=== PATIENT | male | born 1935 | race Caucasian/White ===

== ENCOUNTER 2018-10-29 05:48 | Inpatient (IN) | payer MEDICARE, OTHER ==
[~2018-10-29] VITALS: Ht 180.3 cm; Wt 80.5 kg
[2018-10-29] MEDS ORDERED: ATOR20TA PO (05:59)
[2018-10-29] MEDS ORDERED: ASPI-515 PO (05:59)
[2018-10-29] MEDS ORDERED: SINEX (06:00)
[2018-10-29] MEDS ORDERED: PROAIR (06:00)
[2018-10-29 06:50] LABS: BASOPHILS # (AUTO) 0.09 x10^3/uL (0-0.1); BASOPHILS % (AUTO) 1 % (0-1); EOSINOPHILS # (AUTO) 0.11 x10^3/uL (0-0.4); EOSINOPHILS % (AUTO) 1 % (1-7); LYMPHOCYTES # (AUTO) 1.15 x10^3/uL (1-3.4); LYMPHOCYTES % (AUTO) 15 % (22-44); MD NO; MEAN CORPUSCULAR HEMOGLOBIN 30.4 pg (27.5-34.5); MEAN CORPUSCULAR HGB CONC 33.5 g/dL (33.2-36.2); MEAN CORPUSCULAR VOLUME 90.7 fL (81-97); MEAN PLATELET VOLUME 9.7 fL (7.4-10.4); MONOCYTES # (AUTO) 0.56 x10^3/uL (0.2-0.8); MONOCYTES % (AUTO) 7 % (2-9); NEUTROPHILS # (AUTO) 5.95 x10^3/uL (1.8-6.8); NEUTROPHILS % (AUTO) 76 % (42-75); PLATELET COUNT 189 x10^3/uL (130-400); RED BLOOD COUNT 4.48 x10^6/uL (4.38-5.82); RED CELL DISTRIBUTION WIDTH 13.7 % (9.4-14.8)
[2018-10-29 07:04] LABS: ALANINE AMINOTRANSFERASE 20 U/L (12-78); ALBUMIN 3.8 g/dL (3.4-5.0); ANION GAP 9 mmol/L (5-15); CALCIUM 8.6 mg/dL (8.5-10.1); CHLORIDE 111 mmol/L (98-107); CREATININE 1.25 mg/dL (0.7-1.3)
[2018-10-29 07:08] LABS: ALKALINE PHOSPHATASE 55 U/L (45-117); BILIRUBIN,TOTAL 0.7 mg/dL (0.2-1.0)
[2018-10-29] MEDS ORDERED: OMNIPAQUE 350 MG/ML, 100ML BOTTLE ONE (08:40)
[2018-10-29] MEDS ORDERED: HEPARIN 5,000 UNITS/ML, 1ML IV ONE (09:30)
[2018-10-29] MEDS ORDERED: HEPARIN 25,000 UNITS/500ML PMX 500 ML ONE (09:40)
[2018-10-29] MEDS ORDERED: HEPARIN 5,000 UNITS/ML, 1ML ONE (09:40)
[2018-10-29] MEDS: HEPARIN 25,000 UNITS/500ML PMX 500 ML IV PRN ×3 (09:52→20:37)
[2018-10-29] MEDS: FUROSEMIDE 20 MG/2 ML IV SCH ×2 (10:30→16:42)
[2018-10-29] MEDS ORDERED: TEMAZEPAM 15 MG CAPSULE PO PRN (10:30)
[2018-10-29] MEDS ORDERED: NITROGLYCERIN 0.4 MG BOTTLE (25 TABS) SL PRN (10:30)
[2018-10-29] MEDS ORDERED: hydrALAzine 20 MG/ML, 1ML IVPush PRN (10:30)
[2018-10-29] MEDS ORDERED: ONDANSETRON 2MG/ML, 2ML IVPush PRN (10:30)
[2018-10-29] MEDS ORDERED: morphine SULFATE 10 MG/ML, 1ML IVPush PRN (10:30)
[2018-10-29] MEDS ORDERED: HYDROcodone/APAP 5/325 TABLET PO PRN (10:30)
[2018-10-29 10:47] VITALS: BP 189/94
[2018-10-29] MEDS ORDERED: SODIUM CHLORIDE 0.9% 1,000 ML IV ONE (10:53)
[2018-10-29 14:08] VITALS: BP 125/69
[2018-10-29] MEDS: POTASSIUM CHLORIDE 20 MEQ TAB.ER.PRT PO SCH (14:14)
[2018-10-29] MEDS: METOPROLOL TARTRATE 50 MG TABLET PO SCH ×2 (14:15→19:52)
[2018-10-29] MEDS: LISINOPRIL 10 MG TABLET PO SCH ×2 (14:15→19:52)
[2018-10-29] MEDS: HEPARIN 5,000 UNITS/ML, 1ML IV PRN (16:42)
[2018-10-29] MEDS: ACETAMINOPHEN 325 MG TABLET PO PRN (17:48)
[2018-10-29 19:43] VITALS: BP 123/71
[2018-10-29] MEDS: ATORVASTATIN 80 MG TABLET PO SCH (19:51)
[2018-10-29] MEDS ORDERED: ATORVASTATIN 40 MG TABLET PO SCH (21:00)
[2018-10-30 00:15] VITALS: BP 135/85
[2018-10-30] MEDS ORDERED: FUROSEMIDE 40 MG/4 ML IV ONE (04:00)
[2018-10-30] MEDS ORDERED: FUROSEMIDE 40 MG/4 ML ONE (04:10)
[2018-10-30 05:45] LABS: BASOPHILS # (AUTO) 0.04 x10^3/uL (0-0.1); BASOPHILS % (AUTO) 1 % (0-1); EOSINOPHILS # (AUTO) 0.01 x10^3/uL (0-0.4); EOSINOPHILS % (AUTO) 0 % (1-7); LYMPHOCYTES # (AUTO) 0.71 x10^3/uL (1-3.4); LYMPHOCYTES % (AUTO) 10 % (22-44); MD NO; MEAN CORPUSCULAR HGB CONC 32.6 g/dL (33.2-36.2); MEAN PLATELET VOLUME 10.3 fL (7.4-10.4); MONOCYTES # (AUTO) 0.61 x10^3/uL (0.2-0.8); MONOCYTES % (AUTO) 8 % (2-9); NEUTROPHILS # (AUTO) 6.11 x10^3/uL (1.8-6.8); NEUTROPHILS % (AUTO) 82 % (42-75); PLATELET COUNT 178 x10^3/uL (130-400); RED BLOOD COUNT 4.35 x10^6/uL (4.38-5.82); RED CELL DISTRIBUTION WIDTH 13.9 % (9.4-14.8)
[2018-10-30 05:56] LABS: ALBUMIN 3.6 g/dL (3.4-5.0); ANION GAP 9 mmol/L (5-15); CALCIUM 8.7 mg/dL (8.5-10.1); CHLORIDE 107 mmol/L (98-107)
[2018-10-30 06:03] LABS: ALANINE AMINOTRANSFERASE 28 U/L (12-78); ALKALINE PHOSPHATASE 56 U/L (45-117); BILIRUBIN,TOTAL 0.6 mg/dL (0.2-1.0); CHOL/HDL RATIO 3.5; CHOLESTEROL, TOTAL 208 mg/dL (140-239); CREATININE 1.39 mg/dL (0.7-1.3); HDL CHOL % 29 % (26-37); HDL CHOLESTEROL (DIRECT) 60 mg/dL (40-60); LDL CHOLESTEROL,CALCULATED 136 mg/dL (54-169); LDL/HDL RATIO 2.3 (0.5-3.0); TOTAL PROTEIN 6.8 g/dL (6.4-8.2); TRIGLYCERIDES 59 mg/dL (50-200); VLDL CHOLESTEROL 12 mg/dL (0-25)
[2018-10-30] MEDS: ASPIRIN 81 MG TABLET EC PO SCH (06:13)
[2018-10-30] MEDS: HEPARIN 5,000 UNITS/ML, 1ML IV PRN (06:13)
[2018-10-30 06:56] VITALS: BP 126/73
[2018-10-30] MEDS: FUROSEMIDE 20 MG/2 ML IV SCH ×2 (07:27→17:18)
[2018-10-30] MEDS: METOPROLOL TARTRATE 50 MG TABLET PO SCH ×2 (08:55→20:40)
[2018-10-30] MEDS: LISINOPRIL 10 MG TABLET PO SCH ×2 (08:56→20:40)
[2018-10-30] MEDS: POTASSIUM CHLORIDE 20 MEQ TAB.ER.PRT PO SCH (09:00)
[2018-10-30] MEDS ORDERED: MIDAZOLAM 1 MG/ML, 2ML ONE (13:15)
[2018-10-30] MEDS ORDERED: FENTANYL PF 100 MCG/2ML ONE (13:15)
[2018-10-30] MEDS ORDERED: HEPARIN 1,000 UNITS/ML, 10ML ONE (13:16)
[2018-10-30] MEDS ORDERED: VERAPAMIL 2.5 MG/ML, 2ML ONE (13:16)
[2018-10-30] MEDS ORDERED: BIVALIRUDIN 250 MG ONE (13:17)
[2018-10-30] MEDS ORDERED: TICAGRELOR 90 MG TABLET ONE (13:17)
[2018-10-30 13:22] VITALS: BP 128/73
[2018-10-30] MEDS ORDERED: ONDANSETRON 2MG/ML, 2ML ONE (13:39)
[2018-10-30] MEDS ORDERED: SODIUM CHLORIDE 0.9% 1,000 ML IV SCH (14:18)
[2018-10-30 19:45] VITALS: BP 125/68
[2018-10-30] MEDS: ATORVASTATIN 80 MG TABLET PO SCH (20:40)
[2018-10-31 01:50] VITALS: BP 120/64
[2018-10-31 04:45] LABS: ANION GAP 12 mmol/L (5-15); CALCIUM 8.3 mg/dL (8.5-10.1); CHLORIDE 104 mmol/L (98-107)
[2018-10-31 04:46] LABS: CREATININE 2.29 mg/dL (0.7-1.3)
[2018-10-31] MEDS: ASPIRIN 81 MG TABLET EC PO SCH (06:25)
[2018-10-31 06:45] VITALS: BP 113/65
[2018-10-31] MEDS: FUROSEMIDE 20 MG/2 ML IV SCH (08:09)
[2018-10-31] MEDS: LISINOPRIL 10 MG TABLET PO SCH (08:42)
[2018-10-31] MEDS: METOPROLOL TARTRATE 50 MG TABLET PO SCH (08:42)
[2018-10-31] MEDS: POTASSIUM CHLORIDE 20 MEQ TAB.ER.PRT PO SCH (08:42)
[2018-10-31] MEDS ORDERED: LISINOPRIL 10 MG TABLET PO SCH (11:00)
[2018-10-31] MEDS: CLOPIDOGREL 75 MG TABLET PO SCH (12:02)
[2018-10-31] MEDS: HEPARIN 5,000 UNITS/ML, 1ML SQ SCH ×2 (12:02→20:20)
[2018-10-31 12:36] VITALS: BP 109/63
[2018-10-31] MEDS: ACETAMINOPHEN 325 MG TABLET PO PRN (13:26)
[2018-10-31 16:19] LABS: MICROSCOPIC NOT IND
[2018-10-31] MEDS ORDERED: SODIUM CHLORIDE 0.9%, 500ML IVBOLUS ONE (17:00)
[2018-10-31 19:22] VITALS: BP 132/70
[2018-10-31] MEDS: ATORVASTATIN 80 MG TABLET PO SCH (22:46)
[2018-11-01 00:23] VITALS: BP 119/67
[2018-11-01] MEDS: HEPARIN 5,000 UNITS/ML, 1ML SQ SCH ×3 (04:24→20:12)
[2018-11-01 05:34] LABS: CHLORIDE 101 mmol/L (98-107)
[2018-11-01 05:39] LABS: ANION GAP 12 mmol/L (5-15); CALCIUM 8.2 mg/dL (8.5-10.1); CREATININE 2.68 mg/dL (0.7-1.3)
[2018-11-01] MEDS ORDERED: METOPROLOL SUCCINATE 50 MG TAB.ER.24H PO SCH (06:00)
[2018-11-01] MEDS: ASPIRIN 81 MG TABLET EC PO SCH (06:37)
[2018-11-01 09:10] VITALS: BP 145/77
[2018-11-01] MEDS: CLOPIDOGREL 75 MG TABLET PO SCH (09:13)
[2018-11-01] MEDS: SODIUM CHLORIDE 0.9% 1,000 ML IV SCH ×2 (09:17→23:30)
[2018-11-01] MEDS: ACETAMINOPHEN 325 MG TABLET PO PRN ×2 (11:09→18:31)
[2018-11-01 14:33] VITALS: BP 136/76
[2018-11-01 19:30] VITALS: BP 148/86
[2018-11-01] MEDS: ATORVASTATIN 80 MG TABLET PO SCH (20:11)
[2018-11-01 23:30] VITALS: BP 147/72
[2018-11-02] MEDS: METOPROLOL SUCCINATE 25 MG TAB.ER.24H PO SCH (05:15)
[2018-11-02] MEDS: ASPIRIN 81 MG TABLET EC PO SCH (05:15)
[2018-11-02] MEDS: HEPARIN 5,000 UNITS/ML, 1ML SQ SCH ×3 (05:16→21:41)
[2018-11-02 05:30] LABS: ANION GAP 9 mmol/L (5-15); CALCIUM 7.9 mg/dL (8.5-10.1); CHLORIDE 104 mmol/L (98-107)
[2018-11-02 05:50] LABS: CREATININE 1.99 mg/dL (0.7-1.3)
[2018-11-02 07:09] VITALS: BP 146/71
[2018-11-02] MEDS: CLOPIDOGREL 75 MG TABLET PO SCH (08:32)
[2018-11-02] MEDS: ACETAMINOPHEN 325 MG TABLET PO PRN (08:36)
[2018-11-02] MEDS: SODIUM CHLORIDE 0.9% 1,000 ML IV SCH (12:30)
[2018-11-02 12:53] VITALS: BP 134/82
[2018-11-02 18:56] VITALS: BP 142/68
[2018-11-02] MEDS: ATORVASTATIN 80 MG TABLET PO SCH (21:41)
[2018-11-03 00:58] VITALS: BP 156/85
[2018-11-03] MEDS: ASPIRIN 81 MG TABLET EC PO SCH (05:23)
[2018-11-03] MEDS: METOPROLOL SUCCINATE 25 MG TAB.ER.24H PO SCH (05:23)
[2018-11-03] MEDS: HEPARIN 5,000 UNITS/ML, 1ML SQ SCH (05:23)
[2018-11-03] MEDS: ACETAMINOPHEN 325 MG TABLET PO PRN (05:25)
[2018-11-03 05:48] LABS: CHLORIDE 103 mmol/L (98-107)
[2018-11-03 05:54] LABS: ALBUMIN 3.8 g/dL (3.4-5.0); ANION GAP 11 mmol/L (5-15); CALCIUM 8.5 mg/dL (8.5-10.1); CREATININE 1.79 mg/dL (0.7-1.3)
[2018-11-03 08:00] VITALS: BP 158/83
[2018-11-03] MEDS ORDERED: LISINOPRIL 5 MG TABLET ONE (08:44)
[2018-11-03] MEDS: CLOPIDOGREL 75 MG TABLET PO SCH (08:47)
[2018-11-03] MEDS ORDERED: LISINOPRIL 5 MG TABLET PO SCH (09:00)
[2018-11-03] MEDS ORDERED: ATOR-2 PO (09:23)
[2018-11-03] MEDS ORDERED: METO25TA91 PO (09:23)
[2018-11-03] MEDS ORDERED: CLOP75TA PO (09:23)
[2018-11-03] MEDS ORDERED: ASPI81TA45 PO (09:23)
[2018-11-03] MEDS ORDERED: LISI5TAB7 PO (09:23)
== END 2018-11-03 10:51 | disposition home or self-care (01) | DRG 280 ==
LOC: ED 07:12 → SUATTDRO 09:52 → EDIP 10:29 → 5SO 10:40 → DCLOUNGE 11-03 10:28
PROVIDERS: ADMIT Hospitalist; ATTEND Hospitalist
PROC: 4A023N7 Measurement of Cardiac Sampling and Pressure, Left Heart, Percutaneous Approach (ICD-10-PCS; principal; 2018-10-30)
PROC: B2111ZZ Fluoroscopy of Multiple Coronary Arteries using Low Osmolar Contrast (ICD-10-PCS; 2018-10-30)
PROC: B2151ZZ Fluoroscopy of Left Heart using Low Osmolar Contrast (ICD-10-PCS; 2018-10-30)
PROC: B2181ZZ Fluoroscopy of Left Internal Mammary Bypass Graft using Low Osmolar Contrast (ICD-10-PCS; 2018-10-30)
PROC: B2131ZZ Fluoroscopy of Multiple Coronary Artery Bypass Grafts using Low Osmolar Contrast (ICD-10-PCS; 2018-10-30)
DX: I25.810 Atherosclerosis of coronary artery bypass graft(s) without angina pectoris (principal); I21.4 Non-ST elevation (NSTEMI) myocardial infarction; N17.0 Acute kidney failure with tubular necrosis; I50.23 Acute on chronic systolic (congestive) heart failure; I13.0 Hypertensive heart and chronic kidney disease with heart failure and stage 1 through stage 4 chronic kidney disease, or unspecified chronic kidney disease; E78.5 Hyperlipidemia, unspecified; D64.9 Anemia, unspecified; I25.5 Ischemic cardiomyopathy; H91.90 Unspecified hearing loss, unspecified ear; M25.511 Pain in right shoulder; G89.29 Other chronic pain; N18.9 Chronic kidney disease, unspecified; Z79.82 Long term (current) use of aspirin; Z82.49 Family history of ischemic heart disease and other diseases of the circulatory system; Z85.828 Personal history of other malignant neoplasm of skin; Z87.891 Personal history of nicotine dependence; Z91.14 Patient's other noncompliance with medication regimen; Z91.19 Patient's noncompliance with other medical treatment and regimen; Z95.1 Presence of aortocoronary bypass graft
CPT/HCPCS: 36415; 71045; 71275; 76770; 80048; 80053; 80061; 81003; 82040; 82436; 82570; 83735; 83880; 84100; 84133; 84156; 84300; 84443; 84484; 85025; 85379; 85520; 93005; 93306; 93459; 99156; 99291; C1760; C1769; C1894; G0378; J0583; J1644; J1940; J2250; J2405; J3010; Q9967; J7030; J7040